=== PATIENT | female | born 1970 | race Caucasian/White ===

== ENCOUNTER 2016-10-27 15:46 | Emergency (ER) | payer SELFPAY ==
[2016-10-27] MEDS ORDERED: IOPAMIDOL 300 (61%) 150 ML VIAL IV ONE (15:47)
[2016-10-27 16:56] LABS: SPECIFIC GRAVITY 1.015 (1.001-1.030); URINE BILIRUBIN NEGATIVE (NEGATIVE); URINE BLOOD NEGATIVE (NEGATIVE); URINE GLUCOSE (UA) NEGATIVE (NEGATIVE); URINE LEUKOCYTE ESTERASE NEGATIVE (NEGATIVE); URINE NITRITE NEGATIVE (NEGATIVE); URINE PROTEIN NEGATIVE (NEGATIVE); URINE UROBILINOGEN NORMAL (0-1 mg/dl)
[2016-10-27 16:58] LABS: URINE APPEARANCE CLEAR; URINE COLOR YELLOW
[2016-10-27 17:01] LABS: HCG,QUALITATIVE URINE NEGATIVE
[2016-10-27] MEDS ORDERED: LACTATED RINGERS 1,000 ML ONE (17:26)
[2016-10-27] MEDS ORDERED: ACETAMINOPHEN 325 MG TABLET ONE (17:26)
[2016-10-27 17:53] LABS: ABSOLUTE NEUTROPHIL COUNT 4.6 K/mm3 (1.8-7.7); BASO # 0.1 K/mm3 (0.0-0.2); BASO % 0.7 % (0.2-1.0); EOS # 0.1 (0.0-0.5); EOS % 1.2 % (0.9-2.9); HEMATOCRIT 36.1 % (37.0-47.0); HEMOGLOBIN 11.6 gm/l (12.0-16.0); IMM NEUT% 0.4 % (0-1); LYMPH # 2.4 (1.0-4.8); LYMPH % 31.2 % (15-45); MEAN CELL VOLUME 91.2 fl (81.0-99.0); MEAN CORPUSCULAR HEMOGLOBIN 29.3 pg (27.0-31.0); MEAN CORPUSCULAR HGB CONC 32.1 g/dl (33.0-37.0); MEAN PLATELET VOLUME 8.8 fl (7.4-10.4); MONO # 0.5 (0.0-0.8); MONO % 6.7 % (4-12); NEUT % 59.8 % (43-75); PLATELET COUNT 395 K/mm3 (130-400)
[2016-10-27 18:05] LABS: ALB/GLOB RATIO 0.7 (>1.0); ALBUMIN 3.4 gm/dL (3.5-5.7); CALCIUM 9.9 mg/dL (8.6-10.3)
--- NOTE | 2016-10-27 18:23 | CT ---
EXAMINATION: Contrast enhanced CT scan of the abdomen and pelvis. CLINICAL INDICATION: Right lower quadrant pain COMPARISON: None TECHNIQUE: Oral contrast: None Following uneventful administration of 125 mL of Isovue 300, intravenously axial images were acquired from just above the domes of the diaphragm to the iliac crest. A CT scan of the pelvis was also obtained from the iliac crest to the initial tuberosities. Stacked axial, sagittal, and coronal images were reviewed. Findings: Abdomen CT: (Contrast-enhanced): The lung bases are clear and are without mass or pleural effusion. The liver is unremarkable. The gallbladder is within normal limits. There is no evidence of biliary obstruction. The spleen size and attenuation are within normal limits. The pancreas is normal in size and contours. No inflammatory stranding is identified. The pancreatic duct is unremarkable. The adrenals are unremarkable. There is bilateral pelvic caliectasis. There is a prominent left hydroureter with an inflammatory mass left periadnexal distribution. There is mixed solid and cystic components. This lesion measures 10.8 cm and AP and 5.7 cm in transverse dimension. There is a large right adnexal cyst measuring 8.4 x 7.6 cm. There is mild right hydroureter as well. The abdominal aorta unremarkable. There is no retroperitoneal adenopathy identified. The stomach is unremarkable. The visualized segments of small and large bowel are within normal limits. The osseous structures exhibit no displaced fracture. No lytic or blastic lesions are identified. Pelvic CT: (Contrast -enhanced): The uterus is anteverted. There is mixed attenuation changes as well with a cystic focus closely approximating the left uterine fundus measuring approximately 1.5 cm in diameter. There is effacement of the parauterine soft tissues as well. The bladder is decompressed. Shotty lymph nodes involve the iliac distributions. The distal abdominal aorta and iliac vessels are within normal limits. The visualized segments of small and large bowel are unremarkable. The appendix is unremarkable. No displaced fractures are identified. There are no gross osteolytic or blastic lesions. The overlying soft tissues are unremarkable. IMPRESSION: 1. Inflammatory process predominantly involving the perisigmoid/rectouterine distribution which may reflect a diverticular abscess. Other possibilities to be considered would include tubo-ovarian abscess. There is also inflammatory involvement of the uterus. A left ovarian neoplasm is considered less likely but cannot be excluded. 2. Large cystic mass right adnexa. Findings most likely reflect a cystadenoma. Follow-up nonemergent pelvic sonography to assess for complexity is recommended. The findings were uploaded to the electronic medical record for review at approximately 6:23 PM 10/27/2016
[2016-10-30 14:33] LABS: CHLAMYDIA BD Negative (Negative); N.GONORRHOEAE BD Negative (Negative); SOURCE Urine (())
== END 2016-10-27 19:41 | disposition home or self-care (01) ==
LOC: ED 15:46
DX: R19.00 Intra-abdominal and pelvic swelling, mass and lump, unspecified site (principal); K59.00 Constipation, unspecified; F17.210 Nicotine dependence, cigarettes, uncomplicated; Z85.43 Personal history of malignant neoplasm of ovary; Z85.42 Personal history of malignant neoplasm of other parts of uterus
CPT/HCPCS: 83690; 87491; 87591; 81025; 85025; 80053; 81003; 84484; 87210; 74177; 99284 ×2; 96360; 96361; 93005; A9270; J7120; Q9967